=== PATIENT | female | born 1985 | race Caucasian/White ===

== ENCOUNTER 2023-10-24 07:02 | Outpatient (CLI) | payer BC, SELFPAY ==
[2023-10-24] VITALS (8 sets, daily range): BP systolic 112–119; BP diastolic 69–76; PULSE 22–83; RESP 18; TEMP 36.4–36.9; O2SAT 81–98; BMI 26.6
--- NOTE | 2023-10-24 17:57 | PC.NURSE ---
Patient initially admitted for labor. Had cervical change during triage, then some effacemen and cervix position changes when checked again around 1230. Intermittent contractions noted on monitor and per mom report. Contractions ranging in intensity per mom. Repeat vaginal exam at 1700 hour showed no change since previous check. Dr. Stovall notified and discharge orders completed. Dr. Stovall offered mom morphine and vistaril to be able to rest at home. Mom denied medications. Discharge education complete. Patient verbalizes discharge education and all questions answered. Patient left unit at 1745.
--- NOTE | 2023-11-02 16:50 | PC.OBNST ---
NST Note NST Note Start: 10/24/23 07:14 Freq: ONCE Status: Complete Protocol: Document 10/24/23 19:00 HAOYH (Rec: 11/02/23 16:49 MMB [id number]) NST Note 2 Para (# of births) 1 EDC 11/10/23 Gestational Age In Weeks & Days 38 Weeks & 6 Days Patient Presented with Complaint(s) of Contractions/cramping Reactive Yes Appropriate for Gestational Age Yes RN Lalita Caceres RN Date 10/24/23 Reactive Yes Appropriate for Gestational Age Yes IGNACIA Lee RN Date 10/24/23 OB NST charge Yes Complete NST Note via Write Note Yes The provider's electronic signature indicates the NST is reactive/appropriate for gestational age. *Note to provider: If an addendum is required, open the patient's chart and click on the note under the Nurse/Allied Health tab.
== END 2023-10-24 17:45 | disposition home or self-care (01) ==
LOC: OB OUT 07:02 → OB 07:03
PROVIDERS: PCP Family Medicine; Visit Provider Family Medicine
DX: O47.03 False labor before 37 completed weeks of gestation, third trimester (principal); Z3A.37 37 weeks gestation of pregnancy
CPT/HCPCS: 59025; 85025; 86592; 86850; 86900; 86901; G0463

== ENCOUNTER 2023-10-25 08:19 | Outpatient (CLI) | payer BC, SELFPAY ==
[2023-10-25 08:34] VITALS: BP 121/64; PULSE 65; PULSE 70; RESP 16; TEMP 36.5; O2SAT 98
--- NOTE | 2023-10-25 11:18 | PC.OBNST ---
NST Note NST Note Start: 10/25/23 08:24 Freq: ONCE Status: Active Protocol: Document 10/25/23 10:30 FJZ (Rec: 10/25/23 11:18 FJZ [id number]) NST Note 2 Para (# of births) 1 EDC 11/10/23 Gestational Age In Weeks & Days 37 Weeks & 5 Days Patient Presented with Complaint(s) of Contractions/cramping, Decreased movement Reactive Yes Appropriate for Gestational Age Yes IGNACIA Ackerman RN Date 10/25/23 Reactive Yes Appropriate for Gestational Age Yes IGNACIA Holcomb RN Date 10/25/23 OB NST charge Yes Complete NST Note via Write Note Yes The provider's electronic signature indicates the NST is reactive/appropriate for gestational age. *Note to provider: If an addendum is required, open the patient's chart and click on the note under the Nurse/Allied Health tab.
--- NOTE | 2023-11-24 11:37 | PC.OBNST ---
NST Note NST Note Start: 10/25/23 08:24 Freq: ONCE Status: Discharge Protocol: Document 10/25/23 10:30 FJZ (Rec: 10/25/23 11:18 FJZ [id number]) NST Note 2 Para (# of births) 1 EDC 11/10/23 Gestational Age In Weeks & Days 37 Weeks & 5 Days Patient Presented with Complaint(s) of Contractions/cramping, Decreased movement Reactive Yes Appropriate for Gestational Age Yes IGNACIA Ackerman RN Date 10/25/23 Reactive Yes Appropriate for Gestational Age Yes IGNACIA Holcomb RN Date 10/25/23 OB NST charge Yes Complete NST Note via Write Note Yes The provider's electronic signature indicates the NST is reactive/appropriate for gestational age. *Note to provider: If an addendum is required, open the patient's chart and click on the note under the Nurse/Allied Health tab.
--- NOTE | 2023-11-24 11:45 | PC.OBNST ---
NST Note NST Note Start: 10/25/23 08:24 Freq: ONCE Status: Discharge Protocol: Document 10/25/23 10:30 FJZ (Rec: 10/25/23 11:18 FJZ [id number]) NST Note 2 Para (# of births) 1 EDC 11/10/23 Gestational Age In Weeks & Days 37 Weeks & 5 Days Patient Presented with Complaint(s) of Contractions/cramping, Decreased movement Reactive Yes Appropriate for Gestational Age Yes IGNACIA Ackerman RN Date 10/25/23 Reactive Yes Appropriate for Gestational Age Yes IGNACIA Holcomb RN Date 10/25/23 OB NST charge Yes Complete NST Note via Write Note Yes The provider's electronic signature indicates the NST is reactive/appropriate for gestational age. *Note to provider: If an addendum is required, open the patient's chart and click on the note under the Nurse/Allied Health tab.
== END 2023-10-25 10:33 | disposition home or self-care (01) ==
LOC: OB OUT 08:19 → OB 08:19
PROVIDERS: PCP Family Medicine; Visit Provider Family Medicine
DX: O36.8130 Decreased fetal movements, third trimester, not applicable or unspecified (principal); Z3A.37 37 weeks gestation of pregnancy
CPT/HCPCS: 59025; G0463

== ENCOUNTER 2023-10-28 08:24 | Outpatient (CLI) | payer BC, SELFPAY ==
[2023-10-28] VITALS (23 sets, daily range): BP systolic 108–136; BP diastolic 66–75; PULSE 71–96; O2SAT 98–100
[2023-10-28] MEDS: ACETAMINOPHEN 500 MG TABLET 1000 MG PO (09:53)
[2023-10-28 09:59] LABS: Hematocrit 41.1 % (33.0-51.0); Hemoglobin* 13.3 gm/dL (12.0-16.0); Mean Corpuscular HGB Conc 32 gm/dL (32-36); Mean Corpuscular Hemoglobin 29 pg (26-34); Mean Corpuscular Volume 89 fL (80-100); Platelet Count* 223 K/uL (140-440); White Blood Count* 10.63 K/uL (4.50-11.00)
[2023-10-28 10:05] LABS: Slide Review Reflex No
[2023-10-28 10:14] LABS: Alanine Aminotransferase* 15 U/L (4-35); Aspartate Amino Transferase* 24 U/L (12-35); Blood Urea Nitrogen* 9 mg/dL (5-24); Creatinine* 0.6 mg/dL (0.5-1.5); Estimated Glomerular Filt Rate 118 ml/min
[2023-10-28 10:27] LABS: Total Protein Urine 13 mg/dL
[2023-10-28 10:37] LABS: Creatinine Urine 29.4 mg/dL
--- NOTE | 2023-10-28 12:04 | PC.OBNST ---
NST Note NST Note Start: 10/28/23 08:47 Freq: ONCE Status: Discharge Protocol: Document 10/28/23 12:02 JUANI (Rec: 10/28/23 12:04 JUANI [id number]) NST Note 2 Para (# of births) 1 EDC 11/17/23 Gestational Age In Weeks & Days 37 Weeks & 1 Days Patient Presented with Complaint(s) of Decreased movement Reactive Yes Appropriate for Gestational Age Yes RN Donte Virk RN Date 10/28/23 Reactive Yes Appropriate for Gestational Age Yes IGNACIA Blanco RN Date 10/28/23 OB NST charge Yes Complete NST Note via Write Note Yes The provider's electronic signature indicates the NST is reactive/appropriate for gestational age. *Note to provider: If an addendum is required, open the patient's chart and click on the note under the Nurse/Allied Health tab.
--- NOTE | 2023-10-30 13:41 | PC.OBNST ---
NST Note NST Note Start: 10/28/23 08:47 Freq: ONCE Status: Discharge Protocol: Document 10/30/23 13:39 CUDDY (Rec: 10/30/23 13:40 CUDDY [id number]) NST Note 2 Para (# of births) 1 EDC 11/17/23 Gestational Age In Weeks & Days 37 Weeks & 3 Days Patient Presented with Complaint(s) of Contractions/cramping Reactive Yes Appropriate for Gestational Age Yes RN Charly Lee RN Date 10/24/23 Reactive Yes Appropriate for Gestational Age Yes RN Dennis Lungstrom RN Date 10/24/23 OB NST charge Yes Complete NST Note via Write Note Yes The provider's electronic signature indicates the NST is reactive/appropriate for gestational age. *Note to provider: If an addendum is required, open the patient's chart and click on the note under the Nurse/Allied Health tab.
== END 2023-10-28 11:30 | disposition home or self-care (01) ==
LOC: OB OUT 08:24 → OB 08:24
PROVIDERS: Surgery; PCP Family Medicine; Visit Provider Family Medicine
DX: O47.1 False labor at or after 37 completed weeks of gestation (principal); Z3A.37 37 weeks gestation of pregnancy
CPT/HCPCS: 36415; 59025; 82565; 82570; 84156; 84450; 84460; 84520; 85027; G0463; A9270

== ENCOUNTER 2023-11-01 00:36 | Inpatient (IN) | payer BC, SELFPAY ==
[2023-11-01] VITALS (34 sets, daily range): BP systolic 103–141; BP diastolic 53–87; PULSE 66–102; RESP 16–20; TEMP 36.4–36.7; O2SAT 97–100; BMI 26.9
[2023-11-01 01:29] LABS: Basophils Percent Auto 0.2 % (0.0-3.0); Eosinophils Percent Auto 0.4 % (0.0-7.0); Hemoglobin* 12.4 gm/dL (12.0-16.0); Immature Granulocytes Pct Auto 0.4 %; Lymphocytes Percent Auto 15.9 % (20-44); Mean Corpuscular HGB Conc 33 gm/dL (32-36); Mean Corpuscular Hemoglobin 29 pg (26-34); Mean Corpuscular Volume 87 fL (80-100); Monocytes Percent Auto 5.3 % (0.0-11.0); Neutrophils Percent Auto 77.8 % (42.0-72.0); Platelet Count* 212 K/uL (140-440); RDW Coefficient of Variation % 13.9 % (11.5-15.5); Red Blood Count 4.35 m/uL (4.00-5.20); White Blood Count* 12.19 K/uL (4.50-11.00)
[2023-11-01] MEDS: LACTATED RINGERS 1000 ML 1,000 ML 125 ML IV (01:30)
[2023-11-01 01:33] LABS: Slide Review Reflex No
[2023-11-01] MEDS: ROPIVACAINE 0.2% 100 ml 100 ML 12 MG EPIDURAL (01:56)
--- NOTE | 2023-11-01 02:13 | P.ANBPRC_ITS ---
PFSH PFSH Social History What is your current living situation?: I presently have a place to live Problems where you live: no known problems In the past 12 months, utilities in danger of being shut off: no In past 12 months, lack of transportation kept you from medical appts, meetings, work, or getting things needed for daily living: no In the past 12 mos, have been you worried that your food would run out before you had money to buy more?: never true In the past 12 mos, the food you bought just didn't last and you didn't have money to buy more?: never true Smoking Status: Never smoker How often does anyone, including family, friends and others, physically hurt you : never How often does anyone, including family, friends and others, insult or talk down to you: never How often does anyone, including family, friends and others, threaten you with harm: never How often does anyone, including family, friends and others, scream or curse at you: never Meds Home Medications and Allergies Home Medications Medication Instructions Recorded Confirmed Type docosahexaenoic acid 200 mg 200 mg PO DAILY 10/19/23 10/25/23 History capsule ( DHA) Allergies Allergy/AdvReac Type Severity Reaction Status Date / Time No Known Drug Allergies Allergy Verified 10/19/23 08:28 Results Labs Labs: Laboratory Results - last 24 hr 11/01/23 01:15 WBC 12.19 H RBC 4.35 Hgb 12.4 Hct 38.0 MCV 87 MCH 29 MCHC 33 RDW Coeff of Ibrah[place] 13.9 Plt Count 212 Neut % (Auto) 77.8 H Lymph % (Auto) 15.9 L [place] % (Auto) 5.3 Eos % (Auto) 0.4 Baso % (Auto) 0.2 Neut # (Auto) 9.50 H Lymph # (Auto) 1.90 [place] # (Auto) 0.60 Eos # (Auto) 0.00 Baso # (Auto) 0.00 Abs Immat Gran (auto) 0.00 Imm/Tot Granulo (auto) 0.4 Vital Signs Vital Signs: Last Vital Signs Temp 97.8 F 11/01/23 00:47 Pulse 102 H 11/01/23 02:11 Resp 16 11/01/23 00:47 BP 103/66 11/01/23 02:11 Pulse Ox 100 11/01/23 02:02 Anesthesia Procedures Epidural Insertion Patient Location: OB Start Time: 01:15 Stop Time: 02:15 Start Date: 11/01/23 Stop Date: 11/01/23 Reason for Block: procedure for pain Patient Position: sitting Performed By: Michelle Echevarria Preanesthetic Checklist: IV checked, risks and benefits discussed, monitors and equipment checked, timeout performed and anesthesia consent Prep: chlorhexidine gluconate Monitoring: blood pressure monitoring, continuous pulse oximetry and heart rate Approach: midline Vertebral Space: lumbar (1-5) Epidural Technique: NIK saline Needle Type: Tuohy needle Injection Technique: continuous catheter Needle gauge: 17 Needle Length (cm): 10 cm Needle Insertion Depth (cm): 7 Catheter Gauge: 19 Catheter Type: multi-orifice Catheter at skin depth (cm): 13 Test Dose Result: negative and lidocaine 1.5% with epinephrine 1 to 200,000
--- NOTE | 2023-11-01 02:22 | P.OBHP_ITS ---
OB - H&P: HPI Labor/Induction History of Present Illness Date Seen: 11/01/23 Chief Complaint: The patient is a 38 year old 2 para 1 at 37+5 weeks gestation by first trimester US, who presents with painful regular contractions starting at 2230 on 10/31/23. Chief complaint: maternity Narrative: Ely Shah is a 38 year old at 37+4 weeks by first trimester US here for painful regular contractions starting 10/31/23 at 2230. She had started karen around dinner time, but as evening progressed, these became closer together and stronger. is complicated by suspected macrosomia with EFW of 3082g at 35+5 weeks. Patient is also AMA, had a reassuring level 2 US at 20 weeks and normal NIPT. History of Present Dating criteria: based on 1st trimester US only care: good care Ultrasounds: normal 1st trimester US and normal mid trimester US Medical complications: none Labs Blood type: O (+) positive Rubella: immune RPR/VDLR: nonreactive GBS status: negative HBsAG: negative Review of Systems Status of ROS: Reports: 6 or more systems reviewed and unremarkable except as noted in History and below Meds Home Medications and Allergies Home Medications Medication Instructions Recorded Confirmed Type docosahexaenoic acid 200 mg 200 mg PO DAILY 10/19/23 10/25/23 History capsule ( DHA) Allergies Allergy/AdvReac Type Severity Reaction Status Date / Time No Known Drug Allergies Allergy Verified 10/19/23 08:28 OB - H&P: Exam Physical Exam: Vital signs: Temp Pulse Resp BP Pulse Ox 97.8 F 93 16 141/65 H 100 11/01/23 00:47 11/01/23 02:17 11/01/23 00:47 11/01/23 02:17 11/01/23 02:02 Constitutional: Constitutional: no acute distress Routine HEENT Exam: Head: Present atraumatic Eye: Present EOMI and PERRL ENT: Present mucous membranes moist Routine Neck Exam: Neck: Present full ROM Routine Respiratory Exam: Respiratory: Present CTA bilaterally Routine Cardiovascular Exam: Cardiovascular: RRR Detailed Labor and Delivery Exam: Patient Gravid: Yes Dilation (cm): 8 Effacement (%): 90 Cervix position: mid Consistency: soft Contraction frequency (min): 3 Contraction intensity: Strong/Firm Fetus (Single): Station: -1 Amniotic Membrane Status: intact Heart Rate Baseline: 140 Monitor Accelerations: Present Monitor Decelerations: None Forming Yardage Control Operator Variability: Moderate (6-25) Routine Extremities Exam: Extremities: Present full ROM Comments: no edema Routine Skin Exam: Present intact and normal turgor Routine Neurological Exam: Present alert, oriented X3 and CN II-XII intact Routine Psychiatric Exam: Present normal affect and normal thought process OB - Results Labs Labs: Short CBC 11/01/23 Range/Units 01:15 WBC 12.19 H (4.50-11.00) K/uL Hgb 12.4 (12.0-16.0) gm/dL Hct 38.0 (33.0-51.0) % Plt Count 212 (140-440) K/uL OB - Problem Based A/P Additional Plan (1) Active labor: Status: Acute (2) Term : Status: Acute Delivery/Labor/Induction Plan Plan: expectant management
[2023-11-01] MEDS: OXYTOCIN 30 unit/500 ML in NS 30 UNIT/500 ML BAG 300 UNIT IVPB (03:24)
[2023-11-01] MEDS: LIDOCAINE 1 % PF 30 ML INJECTION (03:28)
--- NOTE | 2023-11-01 04:00 | W.PM.VAGDEL1 ---
Procedure Delivery date: 11/01/23 Procedure Done: Global Events: AMA Intrapartal Events: None Delivery monitor: external FHT and external uterine Route of delivery: Laceration description: Perineal - 2nd Degree Delivery repair: Vicryl Estimated blood loss (mL): 125 Anesthesia type: Epidural Disposition: floor Narrative: The patient is a 38 year-old admitted on 11/01/2023 at 37 Weeks, 4 Days gestation for active labor.? Cervical exam on admission was 4 cm/90 % effaced/-1 station with membranes intact in vertex presentation.? Contractions were every 3 minutes.? heart rate demonstrated baseline 135 bpm with moderate variability, + accelerations, - decelerations; a category 1 tracing.? SROM occurred at 0253 with clear fluid. ? Labor Analgesia:? epidural ? Pitocin:? post ? Labor onset:? 10/31/2023 at 2230 ? Complete:? 0242 ? Pushing:? 0248 ? heart tones during second stage were category 2. ? At 0322 a viable male delivered in vertex OA presentation over intact perineum via spontaneous vaginal delivery.? was placed on maternal abdomen.? Cord was clamped and cut after a 30-60 second delay.? Nose and mouth were bulb suctioned.? Infant weight 8lb9oz.? 9 at 1 minute and 9 at 5 minutes.? Shoulder dystocia: no.? Nuchal cord: no. ? Placenta delivered spontaneously and complete at 0326 with a 3 vessel cord. ? Mother and infant were stable after delivery. ? Lacerations:? 2nd degree perineal, repaired with 3-0 vicryl suture. ? Blood loss: 125 mL. Blood loss measurement type: QBL ? Sponge and needles counts are correct. Infant Gender: Male presentation: vertex Placental Delivery Description: Spontaneous Cord Description: 3 Vessels
[2023-11-01] MEDS: IBUPROFEN 600 MG TABLET PO ×2 (08:49→16:25)
[2023-11-01] MEDS: DOCUSATE SODIUM 100 MG CAPSULE PO (08:49)
[2023-11-01] MEDS: ACETAMINOPHEN 500 MG TABLET 1000 MG PO (12:36)
[2023-11-01] MEDS: OXYCODONE 5 MG TABLET PO ×3 (14:44→23:51)
[2023-11-02] MEDS: IBUPROFEN 600 MG TABLET PO ×2 (02:43→09:09)
[2023-11-02 05:11] VITALS: BP 109/70; PULSE 87; RESP 16; TEMP 36.6; O2SAT 96
[2023-11-02] MEDS: OXYCODONE 5 MG TABLET PO (05:21)
[2023-11-02 06:35] LABS: Hemoglobin* 10.4 gm/dL (12.0-16.0)
[2023-11-02] MEDS: DOCUSATE SODIUM 100 MG CAPSULE PO (08:10)
[2023-11-02 08:17] VITALS: BP 117/79; PULSE 89; TEMP 36.3
--- NOTE | 2023-11-02 12:10 | P.DS_ITS ---
DS: Providers Provider Time Seen by Provider: 07:45 Date Seen: 11/02/23 Date of admission: 11/01/23 00:36 Primary care physician: Annita Stovall MD Admitting Clinician: Annita Stovall MD Attending Physician on discharge: Nicolle Saucedo MD Date of Discharge: 11/02/23 DS: Diagnosis Discharge Diagnosis (1) Term : Status: Acute (2) (normal spontaneous vaginal delivery): Status: Acute Exam Narrative: Exam Narrative: General appearance: Well-appearing adult female. Alert, oriented and appropriate. Sitting up in hospital bed. HEENT: EOMI, no conjunctival injection or discharge. MMM. Neck: Supple. CV: RRR, no rubs, murmurs or extra heart sounds. Pulm: CTAB, no wheezes, rales or rhonchi. Abdomen: Soft, non-tender. Fundus palpated 1 cm below the umbilicus. MSK: Moving all extremities. Ext: Warm and well-perfused. No LE edema. Skin: No rashes appreciated over exposed skin. Neuro: Grossly normal strength and sensation. No focal deficits. Psych: Normal affect. Const: Vital Signs, click to edit/add: Vital Signs - 24 hr 11/01/23 12:30 11/01/23 16:19 11/01/23 19:41 Temperature 97.8 F 98.1 F 97.8 F Pulse Rate [Pulse Oximeter] 81 66 83 Respiratory Rate 16 16 18 Blood Pressure [Le ft Arm] 123/78 124/81 117/78 Pulse Oximetry 97 Oxygen Delivery Me thod Room Air 11/01/23 23:59 11/02/23 05:11 11/02/23 08:17 Temperature 97.5 F L 98 F 97.3 F L Pulse Rate [Pulse Oximeter] 95 87 89 Respiratory Rate 20 16 Blood Pressure [Le ft Arm] 127/79 109/70 117/79 Pulse Oximetry 97 96 Oxygen Delivery Me thod Room Air Room Air OB - DS: Summary Hospital Course Hospital Course: The patient is a 38 year old G 2 P 1 at 37 +5 weeks gestation that was admitted to the Center on 11/01/23 for labor. She had an uncomplicated vaginal delivery. She delivered a viable male . She is breast feeding. Has required oxycodone for control of perineal pain. Otherwise the patient has done well. Peripartum Data delivery method: Vaginal Laceration description: Perineal - 2nd Degree complications: none [place] Gender: Male Infant Discharge Plan: Home Time Spent with Patient Time attestation: Total time spent providing and/or coordinating discharge services: Discharge Plan Discharge Disposition: Home, Self-Care Date of Admission: 11/01/23 00:36 Attending Provider on Discharge: Nicolle Saucedo Primary Care Provider: Annita Stovall Condition: Improved Anticipated Discharge Date/Time: 11/02/23 07:55 Discharge Medications: New acetaminophen 500 mg Tablet 1,000 mg PO Q6H PRNQty: 30 0RF docusate sodium 100 mg Capsule 100 mg PO DAILY Qty: 30 0RF ibuprofen 600 mg Tablet 600 mg PO Q6H PRNQty: 30 0RF Continued DHA 200 mg capsule 200 mg PO DAILY Discharge Orders: Discharge Order (Routine); Ordered 11/02/23 Ordered By: Nicolle Saucedo Patient Education: OB Vaginal/Breast Feeding Activity Level: Activity as Tolerated Discharge Diet: Regular Follow Up Appointments: Annita Stovall MD [Primary Care Provider] - (6 week post- visit with Dr. Stovall) Forms: [employer] Info Instructions
[2023-11-02 17:17] LABS: Rapid Plasma Reagin (RPR) Non Reactive (Non Reactive)
== END 2023-11-02 13:00 | disposition home or self-care (01) | DRG 560 ==
LOC: OB OUT 11-09 11:41
PROVIDERS: Admitting Provider Family Medicine; PCP Family Medicine; Visit Provider Family Medicine
DX: O70.1 Second degree perineal laceration during delivery (principal); Z3A.37 37 weeks gestation of pregnancy; Z37.0 Single live birth
CPT/HCPCS: 01967; 36415; 85018; 85025; 86592; 86850; 86900; 86901; G0463; A9270; J0665; J2001; J2371; J2795; J7120